=== PATIENT | male | born 1940 | race Caucasian/White ===

== ENCOUNTER 2019-03-06 09:38 | Inpatient (IN) | payer OTHER ==
[~2019-03-06] VITALS: Ht 167.6 cm; Wt 77.1 kg
[2019-03-06 09:38] VITALS: BP_SYST 151
[2019-03-06] MEDS ORDERED: NS 500 ML IV ONE (10:45)
[2019-03-06 11:46] LABS: BASOPHILS # (AUTO) 0.1 K/uL (0.0-0.2); BASOPHILS % (AUTO) 0.5 % (0.0-2.0); EOSINOPHILS # (AUTO) 0.2 K/uL (0.0-0.4); EOSINOPHILS % (AUTO) 1.9 % (0.0-4.0); HEMATOCRIT 39.6 % (36-54); HEMOGLOBIN 12.9 g/dL (14.0-18.0); LYMPHOCYTES % (AUTO) 18.3 % (20.5-51.5); MEAN CORPUSCULAR HEMOGLOBIN 30 pg (27-31); MEAN CORPUSCULAR HGB CONC 33 % (32-36); MEAN CORPUSCULAR VOLUME 92 fL (79.0-98.0); MONOCYTES # (AUTO) 0.7 K/uL (0.0-1.0); MONOCYTES % (AUTO) 6.6 % (1.7-9.3); NEUTROPHILS # (AUTO) 7.9 K/uL (1.8-7.7); NEUTROPHILS % (AUTO) 72.7 % (40.0-70.0); PLATELET COUNT (AUTO) 340 K/uL (130-430); RED BLOOD CELL COUNT(AUTO) 4.33 MIL/uL (4.2-6.2); RED CELL DISTRIBUTION WIDTH 13.7 % (9.0-15.0); WHITE BLOOD COUNT (AUTO) 10.9 K/uL (4.8-10.8)
[2019-03-06 11:52] LABS: BILIRUBIN,URINE NEGATIVE (NEGATIVE); CLARITY/URINE CLEAR (CLEAR); COLOR,URINE YELLOW (YELLOW); GLUCOSE,URINE NEGATIVE (NEGATIVE); KETONES,URINE NEGATIVE (NEGATIVE); LEUKOCYTE ESTERASE ,URINE NEGATIVE (NEGATIVE); NITRITE, URINE NEGATIVE (NEGATIVE); PH,URINE 5.5 (5.0-8.0); PROTEIN URINE NEGATIVE (NEGATIVE)
[2019-03-06 11:57] LABS: ANION GAP 9 (5-15); CALCIUM 10.1 mg/dL (8.4-11.0); CHLORIDE 101 mmol/L (98-107); CREATININE 1.79 mg/dL (0.55-1.30); GLUCOSE 132 mg/dL (70-99); POTASSIUM 3.8 mmol/L (3.5-5.1); SODIUM SERUM 134 mmol/L (136-145); UREA NITROGEN, BLOOD 26 mg/dL (8-21)
[2019-03-06 12:00] LABS: PROTHROMBIN TIME 10.3 SECS (9.5-12.5)
[2019-03-06 12:02] LABS: ALANINE AMINOTRANSFERASE 25 U/L (12-78); ALBUMIN 3.5 g/dL (3.4-4.8); ASPARTATE AMINOTRANSFERASE 16 U/L (10-37); TOTAL BILIRUBIN 0.8 mg/dL (0.0-1.0)
[2019-03-06 12:02] LABS: BLOOD, URINE TRACE (NEGATIVE)
[2019-03-06] MEDS ORDERED: KETOROLAC TROMETHAMINE 30 MG VIAL IVP ONE (12:15)
[2019-03-06 12:18] LABS: BACTERIA,URINE RARE /HPF (None Seen); WBC,URINE 0-3 /HPF (0-3)
[2019-03-06] MEDS ORDERED: FENO48TA4 PO (13:04)
[2019-03-06] MEDS ORDERED: PRO40 PO (13:04)
[2019-03-06] MEDS ORDERED: LOSA100T3 PO (13:04)
[2019-03-06 15:07] VITALS: BP_SYST 144
[2019-03-06] MEDS: KCL 20 mEq in D5/0.45NS 1000mL 1,000 ML IV SCH (15:43)
[2019-03-06] MEDS: KETOROLAC TROMETHAMINE 15 MG VIAL IVP SCH (17:38)
[2019-03-06 19:47] VITALS: BP_SYST 147
[2019-03-06] MEDS ORDERED: CYCLOBENZAPRINE HCL 10 MG TABLET (FLEXERIL) PO SCH (21:00)
[2019-03-07] MEDS: KCL 20 mEq in D5/0.45NS 1000mL 1,000 ML IV SCH ×2 (00:54→12:27)
[2019-03-07] MEDS: KETOROLAC TROMETHAMINE 15 MG VIAL IVP SCH ×3 (00:54→12:11)
[2019-03-07 01:24] VITALS: BP_SYST 142
[2019-03-07 06:43] LABS: BASOPHILS % (AUTO) 0.7 % (0.0-2.0); EOSINOPHILS # (AUTO) 0.4 K/uL (0.0-0.4); EOSINOPHILS % (AUTO) 5.4 % (0.0-4.0); HEMATOCRIT 33.1 % (36-54); HEMOGLOBIN 10.9 g/dL (14.0-18.0); LYMPHOCYTES # (AUTO) 2.4 K/uL (1.0-5.5); LYMPHOCYTES % (AUTO) 37.4 % (20.5-51.5); MEAN CORPUSCULAR HEMOGLOBIN 30 pg (27-31); MEAN CORPUSCULAR HGB CONC 33 % (32-36); MEAN CORPUSCULAR VOLUME 91 fL (79.0-98.0); MONOCYTES # (AUTO) 0.5 K/uL (0.0-1.0); NEUTROPHILS # (AUTO) 3.2 K/uL (1.8-7.7); NEUTROPHILS % (AUTO) 48.5 % (40.0-70.0); PLATELET COUNT (AUTO) 295 K/uL (130-430); RED BLOOD CELL COUNT(AUTO) 3.64 MIL/uL (4.2-6.2); RED CELL DISTRIBUTION WIDTH 13.5 % (9.0-15.0); WHITE BLOOD COUNT (AUTO) 6.5 K/uL (4.8-10.8)
[2019-03-07 07:05] LABS: ANION GAP 10 (5-15); CHLORIDE 108 mmol/L (98-107); CREATININE 1.98 mg/dL (0.55-1.30); GLUCOSE 147 mg/dL (70-99); SODIUM SERUM 141 mmol/L (136-145); UREA NITROGEN, BLOOD 37 mg/dL (8-21)
[2019-03-07 08:43] VITALS: BP_SYST 141
[2019-03-07] MEDS ORDERED: LOSARTAN POTASSIUM 50 MG TABLET (COZAAR) PO SCH (09:00)
[2019-03-07] MEDS ORDERED: FENOFIBRATE NANOCRYSTALLIZED 48 MG TABLET (TRICOR) PO SCH (09:00)
[2019-03-07] MEDS ORDERED: ENOXAPARIN SODIUM 40 MG/0.4 ML SYRINGE SUBCUT SCH (09:00)
[2019-03-07] MEDS ORDERED: PANTOPRAZOLE SODIUM 40 MG TAB PO SCH (09:00)
[2019-03-07 11:25] VITALS: BP_SYST 128
[2019-03-07 15:54] VITALS: BP_SYST 122
[2019-03-07] MEDS ORDERED: IBUP-1971 PO (16:33)
[2019-03-07 16:45] VITALS: BP_SYST 122
== END 2019-03-07 17:20 | disposition home or self-care (01) | DRG 552 ==
LOC: SED 09:38 → SMU 14:42
PROVIDERS: ADMIT Family Medicine; ATTEND Family Medicine
DX: M51.36 Other intervertebral disc degeneration, lumbar region (principal); N17.9 Acute kidney failure, unspecified; M54.30 Sciatica, unspecified side; E78.5 Hyperlipidemia, unspecified; I10 Essential (primary) hypertension; M19.90 Unspecified osteoarthritis, unspecified site; E86.0 Dehydration; K21.9 Gastro-esophageal reflux disease without esophagitis; Z79.899 Other long term (current) drug therapy
CPT/HCPCS: 36415; 70450-TC; 71045; 72131; 80048; 80053; 81000-TC; 83605; 83735-TC; 85025; 85610-TC; 85730-TC; 87040-TC; 93005; 96361; 96374; 99285; J1650; J1885